=== PATIENT | female | born 1970 | race African-American/Black ===

== ENCOUNTER 2018-09-28 18:52 | Emergency (ER) | payer SELFPAY ==
[~2018-09-28] VITALS: Ht 160 cm; Wt 85.3 kg
[2018-09-28 18:57] VITALS: BP 139/97; Ht 160 cm; Wt 85.3 kg
== END 2018-09-28 21:29 | disposition home or self-care (01) ==
LOC: ED 18:52
DX: M75.101 Unspecified rotator cuff tear or rupture of right shoulder, not specified as traumatic (principal)
CPT/HCPCS: Q0092